=== PATIENT | female | born 1990 | race Caucasian/White ===

== ENCOUNTER 2018-05-27 14:25 | Emergency (ER) | payer SELFPAY ==
[~2018-05-27] VITALS: Ht 167.6 cm; Wt 97.7 kg
[2018-05-27 17:22] VITALS: BP 145/84
== END 2018-05-27 17:29 | disposition home or self-care (01) ==
LOC: ER 16:37
DX: F41.0 Panic disorder [episodic paroxysmal anxiety] (principal); Z98.890 Other specified postprocedural states; Z88.5 Allergy status to narcotic agent
CPT/HCPCS: 82962; 93005; 99283; Z7610

== ENCOUNTER 2023-04-08 15:26 | Emergency (ER) | payer MEDICAID ==
[~2023-04-08] VITALS: Ht 167.6 cm; Wt 103.0 kg
[2023-04-08 15:36] VITALS: TEMP 98; O2SAT 99
[2023-04-08] MEDS ORDERED: IBUPROFEN 600MG TABLET PO STA (18:01)
[2023-04-08] MEDS ORDERED: IBUP-2030 MT (18:07)
[2023-04-08 18:24] VITALS: BP 127/62; PULSE 96; RESP 18
== END 2023-04-08 18:34 | disposition home or self-care (01) ==
LOC: ER 15:26
DX: M53.3 Sacrococcygeal disorders, not elsewhere classified (principal); Z88.5 Allergy status to narcotic agent
CPT/HCPCS: 99282